=== PATIENT | female | born 1970 | race Caucasian/White ===

== ENCOUNTER 2024-10-27 09:55 | Day surgery (SDC) | payer MEDICAID ==
[~2024-10-27] VITALS: Ht 172.7 cm; Wt 136.4 kg
[~2024-10-27 09:55] MED LIST: GABA-1405 PO; HYDR-3686 PO
[2024-10-27 10:42] VITALS: BP 146/77; PULSE 71; RESP 16; TEMP 98.2
[2024-10-27] MEDS ORDERED: propofol inj 20 ML IV ONE ×2 (11:36)
[2024-10-27 11:46] VITALS: BP 138/74; PULSE 68; RESP 16; O2SAT 98
[2024-10-27 11:56] VITALS: BP 132/74; PULSE 68; RESP 14; O2SAT 97
[2024-10-27 12:06] VITALS: BP 128/78; PULSE 72; RESP 16; O2SAT 98
[2024-10-27 12:17] VITALS: BP 130/76; PULSE 74; RESP 16; O2SAT 98
== END 2024-10-27 12:55 | disposition home or self-care (01) ==
LOC: GI LAB 09:55
PROVIDERS: ATTEND Internal Medicine Gastroenterology
DX: R13.10 Dysphagia, unspecified (principal); K31.89 Other diseases of stomach and duodenum; I10 Essential (primary) hypertension; E66.9 Obesity, unspecified; Z79.899 Other long term (current) drug therapy; Z90.49 Acquired absence of other specified parts of digestive tract; Z90.710 Acquired absence of both cervix and uterus; Z98.84 Bariatric surgery status; Z98.0 Intestinal bypass and anastomosis status; Z68.42 Body mass index [BMI] 45.0-49.9, adult; Z88.8 Allergy status to other drugs, medicaments and biological substances
CPT/HCPCS: 43239; J2704; J7030; Z7512